=== PATIENT | female | born 1960 | race Caucasian/White ===

== ENCOUNTER 2018-05-31 05:58 | Inpatient (IN) ==
[2018-05-31] MEDS ORDERED: Chlorhexidine Gluconate 2% 1 Pack (2 Cloths) TOPICAL SCH (06:45)
[2018-05-31] MEDS ORDERED: Metoprolol Tartrate 25 MG Tablet PO SCH (06:45)
[2018-05-31] MEDS ORDERED: Sodium Chlor 0.9% Inj 500 ML IV.SIG SCH (07:00)
[2018-05-31] MEDS ORDERED: ceFAZolin Inj 3,000 MG in Sodium Chlor 0.9% Inj 100 ML IV.SIG SCH (07:00)
[2018-05-31] MEDS ORDERED: Scopalamine 1.5 MG Patch T-DERMAL ONE (07:01)
[2018-05-31] MEDS ORDERED: SCOPOLAMINE 1.5MG PATCH TOPICAL SCH (07:15)
[2018-05-31] MEDS ORDERED: Dexmedetomidine Inj 200 MCG/2 ML Vial ONE (07:51)
[2018-05-31] MEDS: ceFAZolin 2 GM Premix Inj 2 GM/50 ML PIGGYBACK IV.SIG ONE (08:05)
[2018-05-31] MEDS: Bupivacaine/Epinephrine Inj 0.25% 50 ML Vial ONE ×2 (08:45→22:49)
[2018-05-31] MEDS ORDERED: diphenhydrAMINE HCl 12.5 MG/5 ML Elixir UDC PO PRN (09:33)
[2018-05-31] MEDS ORDERED: Acetaminophen-HYDROcodone 325/7.5 Liq 15 ML UDC PO PRN (09:33)
[2018-05-31] MEDS ORDERED: Naloxone Inj 0.4 MG/ML Vial IV.PUSH PRN (09:38)
[2018-05-31] MEDS ORDERED: Morphine Inj 30 MG/30 ML PCA.VIAL PCA PRN (09:38)
[2018-05-31] MEDS ORDERED: Post-op Orders (for Pharmacy) OTHER STA (09:50)
[2018-05-31] MEDS ORDERED: *morphine SULFATE 4 MG/ML PERIprocedure ONLY ONE (09:57)
[2018-05-31] MEDS ORDERED: fentaNYL Citrate Inj 100 MCG/2 ML Ampul ONE (09:59)
[2018-05-31] MEDS ORDERED: Morphine Inj 4 MG/ML Vial ONE (09:59)
[2018-05-31] MEDS ORDERED: *HYDROmorphone PF Inj 1 MG/ML Ampul PERIprocedural Use ONLY ONE (10:20)
[2018-05-31] MEDS: KCL 20 mEq/D5W/NaCl 0.45% Inj 1,000 ML IV.CONT SCH ×2 (10:45→20:04)
[2018-05-31] MEDS ORDERED: Non-Formulary Drug TOPICAL SCH (12:00)
[2018-05-31] MEDS ORDERED: Glycopyrrolate Inj 1 MG/5 ML Syringe IV.PUSH ONE (12:00)
[2018-05-31] MEDS ORDERED: Neostigmine Inj 5 MG/5 ML Syringe IV.PUSH ONE (12:00)
[2018-05-31] MEDS ORDERED: Phenylephrine/NS 1000 MCG/10ML Syringe IV.PUSH ONE (12:00)
[2018-05-31] MEDS ORDERED: Lidocaine PF 1% Inj 5 ML Syringe INFILTRATN ONE (12:00)
[2018-05-31] MEDS ORDERED: Enoxaparin Inj 40 MG/0.4 ML Syringe SQ SCH (14:00)
[2018-06-01] MEDS: KCL 20 mEq/D5W/NaCl 0.45% Inj 1,000 ML IV.CONT SCH ×3 (02:06→13:27)
[2018-06-01 07:07] LABS: Baso % (Auto) 0.1 % (0.0-2.0); Hematocrit 38.5 % (35.0-46.0); Hemoglobin 12.7 gm/dL (11.6-15.3); Lymph # (Auto) 0.4 th/mm3 (1.0-4.8); Lymph % (Auto) 4.5 % (9.0-44.0); Mean Corpuscular Hemoglobin 31.6 pg (27.0-34.0); Mean Corpuscular Volume 95.8 fL (80.0-100.0); Mean Platelet Volume 9.4 fL (7.0-11.0); Mono # (Auto) 0.3 th/mm3 (0.0-0.9); Mono % (Auto) 3.6 % (0.0-8.0); Neut # (Auto) 7.8 th/mm3 (1.8-7.7); Neut % (Auto) 91.8 % (16.0-70.0); Platelet Count 183 th/mm3 (150-450); Red Blood Count 4.02 mil/mm3 (4.00-5.30); White Blood Count 8.5 th/mm3 (4.0-11.0)
[2018-06-01 07:39] LABS: Calcium 8.7 mg/dL (8.5-10.1); Carbon Dioxide 27.3 meq/L (21.0-32.0); Magnesium 2.3 mg/dL (1.5-2.5); Potassium 4.2 meq/L (3.5-5.1)
--- NOTE | 2018-06-01 10:49 | P.PNGS ---
Subjective Interval history: Tolerating PO fluids Pain and nausea well controlled No GI complaints Physical Exam Vital signs: Vital Signs 05/31/18 11:00 05/31/18 12:00 05/31/18 13:00 Temperature 97.5 F L Pulse Rate 65 60 83 Respiratory Rate 12 12 14 Blood Pressure 130/81 132/61 123/63 Pulse Oximetry 95 93 L 93 L 05/31/18 15:00 05/31/18 20:00 06/01/18 00:00 Temperature 97.3 F L 98.1 F Pulse Rate 65 69 66 Respiratory Rate 14 20 19 Blood Pressure 111/63 124/77 113/53 L Pulse Oximetry 96 95 94 L 06/01/18 04:00 06/01/18 08:00 06/01/18 08:30 Temperature 97.8 F 97.4 F L Pulse Rate 62 62 Respiratory Rate 18 16 Blood Pressure 110/56 L 115/56 L Pulse Oximetry 95 94 L 96 Intake & Output 05/31/18 06/01/18 06/01/18 18:59 06:59 18:59 Intake Total 1810 / 1810 2400 / 2400 100 / 100 Output Total 20 / 20 Balance 1790 / 1790 2400 / 2400 100 / 100 Intake: IV 1250 / 1250 2400 / 2400 100 / 100 D5W/1/2NS + KCL 20 mEq Inj 1, 2000 / 1999 000 ML @ 150 mls/hr IV.CONT . Q6H40M [facility] Rx#:[id number] Ofirmev Inj 1,000 mg In 100 ml 200 / 200 200 / 200 @ 400 mls/hr IV.SIG Q6H [facility] Rx# :[id number] LR 1000 mL Inj 1,000 ML @ 30 1000 / 1000 mls/hr IV.SIG .Q24H [facility] Rx#: [id number] Ancef 2 GM Premix Inj 2 gm In 50 / 50 50 ml @ 0 mls/hr IV.SIG .STK- MED ONE Rx#:[id number] Ancef Inj 1,000 MG In NS Inj 200 / 200 100 / 100 100 ML @ 200 mls/hr IV.SIG Q8H [facility] Rx#:[id number] Oral 60 / 60 Anesthesia Amount 500 / 500 Output: Estimated Blood Loss 20 / 20 Other: # Voids 1 4 Narrative: GENERAL: no apparent distress. CARDIOVASCULAR: Regular rate and rhythm without murmurs, gallops, or rubs. RESPIRATORY: Clear to auscultation. Breath sounds equal bilaterally. No wheezes , rales, or rhonchi. GASTROINTESTINAL: Abdomen soft, non-tender, nondistended. surgical incisions C/D /I MUSCULOSKELETAL: Extremities without clubbing, cyanosis, or edema. - Additional findings Additional findings: Laboratory Results - last 12 hr 06/01/18 06/01/18 06:26 06:26 WBC 8.5 RBC 4.02 Hgb 12.7 Hct 38.5 MCV 95.8 MCH 31.6 MCHC 33.0 RDW 14.0 Plt Count 183 MPV 9.4 Neut % (Auto) 91.8 H Lymph % (Auto) 4.5 L [place] % (Auto) 3.6 Eos % (Auto) 0.0 Baso % (Auto) 0.1 Neut # (Auto) 7.8 H Lymph # (Auto) 0.4 L [place] # (Auto) 0.3 Eos # (Auto) 0.0 Baso # (Auto) 0.0 WBC Differential . 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 I reviewed and agree with the findings presented. I attest that I had a [id number] encounter with the patient on the same day, and personally performed and documented my assessment and findings in the medical record.
[2018-06-01 12:23] VITALS: BP 134/89; PULSE 59; RESP 19; TEMP 97.9; O2SAT 94
--- NOTE | 2018-06-01 15:45 | MP ---
cc: Catalino Elizondo MD DATE OF OPERATION: 05/31/2018 PREOPERATIVE DIAGNOSES: Morbid obesity with a BMI of 52, complicated by hyperlipidemia and obstructive sleep apnea. POSTOPERATIVE DIAGNOSES: Morbid obesity with a BMI of 52, complicated by hyperlipidemia and obstructive sleep apnea. PROCEDURE PERFORMED: Laparoscopic vertical sleeve gastrectomy over a 36-[place] ViSiGi bougie. SURGEON: Catalino Elizondo MD. ANESTHESIA: General endotracheal anesthesia. ESTIMATED BLOOD LOSS: Scant. FINDINGS: Fatty liver. SPECIMENS: None. COMPLICATIONS: None. PROCEDURE IN DETAIL: The patient was brought to the operating room and placed on the operating table in supine position, bilateral sequential inflation device placed on lower extremities. General anesthesia was instituted. Antibiotics was initiated. The abdomen was prepped and draped sterilely. A point 15 cm distal to the xiphoid in the midline was anesthetized with 0.25% Marcaine with epinephrine. A skin incision was made, 5-mm OptiView port placed under direct vision and pneumoperitoneum created. Under direct vision, three 5-mm left upper quadrant, a 15-mm right upper quadrant, 5-mm right upper quadrant ports placed. Prior to placement of all ports the skin and peritoneum were anesthetized with 0.25% Marcaine with epinephrine. The patient was placed in reverse Trendelenburg position left side up, the Janneth-Flex retractor was placed. The left lobe of the liver was retracted. The vasculature along the greater curvature of the stomach was using harmonic scalpel starting a distance 5-cm proximal to the pylorus and carried towards the angle of His. The angle of His was taken down bluntly. Posterior ligamentous attachments were sharply . A 36-[place] ViSiGi bougie was placed at the start of the case, was placed on suction. Division of the stomach started 5 cm proximal to the pylorus and carried towards the angle of His to completely excise approximately 80% of the stomach. This was performed using an [place] Flex stapler at the pylorus. The first firing was with a black load, followed by a green load and four gold loads. All staple loads were reinforced with SeamGuard. A distance of 2 cm was left from the angle incisura and the staple line and a distance of 1 cm left from the GE junction and the staple line. The pylorus was then occluded, methylene blue tinged saline was instilled. There was no evidence of extravasation. The gastrocolic ligament was then sutured to the posterior leaflet of the SeamGuard using a 2-0 Vicryl suture. Bleeding points were controlled with Evicel. The excised stomach was removed from the peritoneal cavity. The fascia at the 15-mm port site was approximated with 0 Vicryl suture. The CO2 was then released, all ports were removed, all skin incisions closed with 4-0 Monocryl. The abdominal wall was cleaned. A sterile dressing was placed. The patient was awakened and taken to the recovery room. MD GALLITO Wahl/keith , 03:18 PM , 03:24 PM MTDD
== END 2018-06-01 14:38 | disposition home or self-care (01) ==
LOC: HSDC 05:58 → EDSTATUS 08:00 → HSDI 09:33 → N07 15:50
PROVIDERS: ADMIT Surgery; ATTEND Surgery